=== PATIENT | male | born 1980 | race Hispanic/Latino ===

== ENCOUNTER 2018-02-22 04:04 | Emergency (ER) | payer SELFPAY ==
[2018-02-22] MEDS ORDERED: ONDANSETRON 4 MG/2 ML VIAL ONE (04:33)
[2018-02-22] MEDS ORDERED: NA CHLORIDE 0.9% 1,000 ML ONE (04:33)
[2018-02-22 04:55] LABS: Absolute Lymphocytes (CBC) 2.9 K/uL (0.7-4.9); Absolute Monocytes 0.9 K/uL (0.1-1.3); Basophils % 0.4 % (0-1.3); Eosinophils % 2.7 % (0-4.4); Hematocrit 42.4 % (39.6-49.0); Lymphocytes % 35.6 % (15.3-44.8); MCH 32.5 pg (27.0-35.0); MCV 91.4 fL (80-100); MPV 8.4 fL (7.6-11.3); Monocytes % 11.2 % (3.3-12.3); RBC Red Blood Cell Count 4.64 M/uL (4.33-5.43)
[2018-02-22 05:12] LABS: ALT/SGPT 71 U/L (12-78); AST/SGOT 32 U/L (15-37); Albumin 3.9 g/dL (3.4-5.0); Alkaline Phosphatase 101 U/L (45-117); BUN Blood Urea Nitrogen 14 mg/dL (7-18); Bicarbonate 25 mmol/L (21-32); Bilirubin Direct 0.1 mg/dL (0-0.2); Bilirubin Total 0.6 mg/dL (0.2-1.0); Glucose Level 102 mg/dL (74-106); Lipase 166 U/L (73-393); Potassium 3.5 mmol/L (3.5-5.1); Protein, Total 7.9 g/dL (6.4-8.2); Sodium Level 142 mmol/L (136-145)
--- NOTE | 2018-02-22 05:22 | EDPHYS ---
Physician Documentation [facility] Name: Kenny Jenkins Age: 37 yrs Sex: Male : 1980 Arrival Date: 02/22/2018 Time: 04:05 Bed 15 Private MD: ED Physician Nghia Ford HPI: 02/22 04:21 This 37 yrs old Male presents to ER via Ambulatory with complaints of Cough, jean Vomiting, Headache. 04:21 The patient or guardian reports cough. Onset: The symptoms/episode began/occurred 2 jean day(s) ago. Severity of symptoms: At their worst the symptoms were mild, in the emergency department the symptoms are unchanged. Modifying factors: The symptoms are alleviated by nothing, the symptoms are aggravated by nothing. Associated signs and symptoms: The patient has no apparent associated signs or symptoms. Historical: - Allergies: 04:17 No Known Allergies; tl2 - Home Meds: 04:17 None [Active]; tl2 - PMHx: 04:17 Kidney stones; tl2 - PSHx: 04:17 None; tl2 - Immunization history:: Adult Immunizations up to date. - Social history:: Smoking status: Patient/guardian denies using tobacco. - Ebola Screening: : No symptoms or risks identified at this time. ROS: 04:21 Constitutional: Negative for fever, chills, and weight loss, Eyes: Negative for injury, jean pain, redness, and discharge, ENT: Negative for injury, pain, and discharge, Neck: Negative for injury, pain, and swelling, Cardiovascular: Negative for chest pain, palpitations, and edema, Back: Negative for injury and pain, : Negative for injury, bleeding, discharge, and swelling, MS/Extremity: Negative for injury and deformity, Skin: Negative for injury, rash, and discoloration, Neuro: Negative for headache, weakness, numbness, tingling, and seizure, Psych: Negative for depression, anxiety, suicide ideation, homicidal ideation, and hallucinations, Allergy/Immunology: Negative for hives, rash, and allergies, Endocrine: Negative for neck swelling, polydipsia, polyuria, polyphagia, and marked weight changes, Hematologic/Lymphatic: Negative for swollen nodes, abnormal bleeding, and unusual bruising. 04:21 Respiratory: Positive for cough. 04:21 Abdomen/GI: Positive for nausea and vomiting, diarrhea. Exam: 04:21 Constitutional: This is a well developed, well nourished patient who is awake, alert, jean and in no acute distress. Head/Face: Normocephalic, atraumatic. Eyes: Pupils equal round and reactive to light, extra-ocular motions intact. Lids and lashes normal. Conjunctiva and sclera are non-icteric and not injected. Cornea within normal limits. Periorbital areas with no swelling, redness, or edema. ENT: Nares patent. No nasal discharge, no septal abnormalities noted. Tympanic membranes are normal and external auditory canals are clear. Oropharynx with no redness, swelling, or masses, exudates, or evidence of obstruction, uvula midline. Mucous membranes moist. Neck: Trachea midline, no thyromegaly or masses palpated, and no cervical lymphadenopathy. Supple, full range of motion without nuchal rigidity, or vertebral point tenderness. No Meningismus. Chest/axilla: Normal chest wall appearance and motion. Nontender with no deformity. No lesions are appreciated. Cardiovascular: Regular rate and rhythm with a normal S1 and S2. No gallops, murmurs, or rubs. Normal PMI, no JVD. No pulse deficits. Back: No spinal tenderness. No costovertebral tenderness. Full range of motion. Male : Normal genitalia with no discharge or lesions. Skin: Warm, dry with normal turgor. Normal color with no rashes, no lesions, and no evidence of cellulitis. MS/ Extremity: Pulses equal, no cyanosis. Neurovascular intact. Full, normal range of motion. Neuro: Awake and alert, GCS 15, oriented to person, place, time, and situation. Cranial nerves II-XII grossly intact. Motor strength 5/5 in all extremities. Sensory grossly intact. Cerebellar exam normal. Normal gait. Psych: Awake, alert, with orientation to person, place and time. Behavior, mood, and affect are within normal limits. 04:21 Respiratory: the patient does not display signs of respiratory distress, Respirations: normal, Breath sounds: decreased breath sounds. 04:32 Neck: ROM/movement: is normal, no acute changes, Meningeal signs: are not present, jean Kernig's sign is negative, Brudzinski's sign is negative. Vital Signs: 04:17 BP 147 / 97; Pulse 68; Resp 18; Temp 98.2(O); Pulse Ox 97% on R/A; Weight 111.13 kg; tl2 Height 6 ft. 0 in. (182.88 cm); Pain 8/10; 04:17 Body Mass Index 33.23 (111.13 kg, 182.88 cm) tl2 MDM: 04:11 Patient medically screened. [facility] 04:23 Data reviewed: vital signs, nurses notes, lab test result(s), EKG, radiologic studies, [facility] plain films. 02/22 04:20 Order name: Basic Metabolic Panel; Complete Time: 05: [facility] 02/22 04:20 Order name: CBC with Diff; Complete Time: 05: [facility] 02/22 04:20 Order name: Creatinine for Radiology; Complete Time: : [facility] 02/22 04:20 Order name: Hepatic Function; Complete Time: 05: [facility] 02/22 04:20 Order name: Lipase; Complete Time: 05: [facility] 02/22 04:20 Order name: Chest Single View XRAY [facility] 02/22 04:20 Order name: IV Saline Lock; Complete Time: 04:31 [facility] 02/22 04:20 Order name: Labs collected and sent; Complete Time: 04:31 [facility] Administered Medications: 04:30 Drug: NS 0.9% 1000 ml Route: IV; Rate: 1 bolus; Site: left antecubital; ea 05:15 Follow up: Response: No adverse reaction; IV Status: Completed infusion; IV Intake: ea 1000ml 04:31 Drug: Zofran 4 mg Route: IVP; Site: left antecubital; ea 05:00 Follow up: Response: No adverse reaction; Nausea is decreased ea Disposition: 02/22/18 05:21 Discharged to Home. Impression: Cough, Vomiting, Diarrhea, unspecified. - Condition is Stable. - Discharge Instructions: Food Choices to Help Relieve Diarrhea, Adult, Diarrhea, Adult, Nausea and Vomiting, Adult, Nausea and Vomiting, Adult, [id number], Diarrhea, Adult, [id number]-te-Nekt, Cough, Adult, [id number]-ag-Ltot, Cough, Adult. - Prescriptions for Bentyl 20 mg Oral Tablet - take 1 tablet by ORAL route every 6 hours As needed; 20 tablet. Zofran 4 mg Oral Tablet - take 1 tablet by ORAL route every 12 hours As needed; 20 tablet. - Medication Reconciliation Form, Thank You Letter, Antibiotic Education, Prescription Opioid Use, Work release form form. - Follow up: Private Physician; When: 2 - 3 days; Reason: Recheck today's complaints, Continuance of care, Re-evaluation by your physician. - Problem is new. - Symptoms have improved. Signatures: Dispatcher [employer] EDMS Nghia Ford MD MD cha Solis, Maria ms Kaleigh Velazquez, RN RN tl2 Kimmy Daily RN RN ea Corrections: (The following items were deleted from the chart) 05:52 05:21 02/22/2018 05:21 Discharged to Home. Impression: Cough; Vomiting; Diarrhea, ms unspecified. Condition is Stable. Discharge Instructions: Food Choices to Help Relieve Diarrhea, Adult, Diarrhea, Adult, Nausea and Vomiting, Adult, Nausea and Vomiting, Adult, Pzho-[id number], Diarrhea, Adult, Vghv-[id number], Cough, Adult, [id number]-[id number]-[id number], Cough, Adult. Prescriptions for Bentyl 20 mg Oral Tablet - take 1 tablet by ORAL route every 6 hours As needed; 20 tablet, Zofran 4 mg Oral Tablet - take 1 tablet by ORAL route every 12 hours As needed; 20 tablet. and Forms are Medication Reconciliation Form, Thank You Letter, Antibiotic Education, Prescription Opioid Use. Follow up: Private Physician; When: 2 - 3 days; Reason: Recheck today's complaints, Continuance of care, Re-evaluation by your physician. Problem is new. Symptoms have improved. jean
--- NOTE | 2018-02-22 05:22 | ER ---
Nurse's Notes [facility] Name: Kenny Jenkins Age: 37 yrs Sex: Male : 1980 Arrival Date: 02/22/2018 Time: 04:05 Bed 15 Private MD: Diagnosis: Cough;Vomiting;Diarrhea, unspecified Presentation: 02/22 04:16 Presenting complaint: Patient states: Vomiting and headache since last night. Denies tl2 fever. Reports abdominal pain and diarrhea that has since resolved. Reports cough and congestion. Transition of care: patient was not received from another setting of care. Onset of symptoms was February 21, 2018 at 22:00. Risk Assessment: Do you want to hurt yourself or someone else? Patient reports no desire to harm self or others. Initial Sepsis Screen: Does the patient meet any 2 criteria? No. Patient's initial sepsis screen is negative. Does the patient have a suspected source of infection? No. Patient's initial sepsis screen is negative. Care prior to arrival: None. 04:16 Method Of Arrival: Ambulatory tl2 04:16 Acuity: TAMI 3 tl2 Triage Assessment: 04:17 General: Appears in no apparent distress. tl2 Historical: - Allergies: 04:17 No Known Allergies; tl2 - Home Meds: 04:17 None [Active]; tl2 - PMHx: 04:17 Kidney stones; tl2 - PSHx: 04:17 None; tl2 - Immunization history:: Adult Immunizations up to date. - Social history:: Smoking status: Patient/guardian denies using tobacco. - Ebola Screening: : No symptoms or risks identified at this time. Screenin:19 Abuse screen: Denies threats or abuse. Nutritional screening: No deficits noted. tl2 Tuberculosis screening: No symptoms or risk factors identified. Fall Risk None identified. Assessment: 04:17 General: Appears uncomfortable, Behavior is calm, cooperative, appropriate for age. ea Pain: Complains of pain in right upper quadrant Pain currently is 6 out of 10 on a pain scale. Quality of pain is described as crampy, Pain began yesterday. Neuro: Level of Consciousness is awake, alert, obeys commands, Oriented to person, place, time. Cardiovascular: Heart tones S1 S2 present Patient's skin is warm and dry. Respiratory: Airway is patent Respiratory effort is even, unlabored, Respiratory pattern is regular, symmetrical, Breath sounds are clear bilaterally. GI: Abdomen is non-distended, Bowel sounds present X 4 quads. Abd is soft X 4 quads Abdomen is tender to palpation in right upper quadrant Parent/caregiver reports the patient having nausea, vomiting. Derm: Skin is pink, warm \T\ dry. Musculoskeletal: Circulation, motion, and sensation intact. 05:46 Reassessment: Patient and/or family updated on plan of care and expected duration. Pain ea level reassessed. Patient is alert, oriented x 3, equal unlabored respirations, skin warm/dry/pink. Discharge instructions given to patient, verbalized the understanding of instruction. Vital Signs: 04:17 BP 147 / 97; Pulse 68; Resp 18; Temp 98.2(O); Pulse Ox 97% on R/A; Weight 111.13 kg; tl2 Height 6 ft. 0 in. (182.88 cm); Pain 8/10; 04:17 Body Mass Index 33.23 (111.13 kg, 182.88 cm) tl2 ED Course: 04:05 Patient arrived in ED. ag3 04:11 Nghia Ford MD is Attending Physician. jean 04:17 Triage completed. tl2 04:17 Kimmy Daily, RN is Primary Nurse. ea 04:17 Arm band placed on right wrist. tl2 04:19 Patient has correct armband on for positive identification. Bed in low position. Call tl2 light in reach. Side rails up X 1. 04:30 Inserted saline lock: 20 gauge in right antecubital area, using aseptic technique. ea Blood collected. 05:05 X-ray completed. Portable x-ray completed in exam room. Patient tolerated procedure ag1 well. 05:05 Chest Single View XRAY In Process Unspecified. EDMS Administered Medications: 04:30 Drug: NS 0.9% 1000 ml Route: IV; Rate: 1 bolus; Site: left antecubital; ea 05:15 Follow up: Response: No adverse reaction; IV Status: Completed infusion; IV Intake: ea 1000ml 04:31 Drug: Zofran 4 mg Route: IVP; Site: left antecubital; ea 05:00 Follow up: Response: No adverse reaction; Nausea is decreased ea Intake: 05:15 IV: 1000ml; Total: 1000ml. ea Outcome: 05:21 Discharge ordered by MD. pena 05:47 Condition: improved alfonzo 05:47 Discharge instructions given to patient, Instructed on discharge instructions, follow up and referral plans. medication usage, Demonstrated understanding of instructions, follow-up care, medications, Prescriptions given X 2. 05:52 Patient left the ED. ms Signatures: Dispatcher [employer] EDNJ Nghia Ford MD MD cha Solis, Maria ms Gallaway, Genoveva ag1 Kaleigh Velazquez RN RN sean2 Kimmy Daily RN JOSSELYN Guerrero, Merissa ag3
--- NOTE | 2018-02-22 11:14 | RAD REPORT ---
EXAM DESCRIPTION: RAD - Chest Single View - 02/22/2018 5:07 am CLINICAL HISTORY: ABDOMINAL DISTENTION Chest pain. COMPARISON: No comparisons FINDINGS: Portable technique limits examination quality. The lungs are grossly clear. The heart is normal in size. No displaced fractures. IMPRESSION: No acute intrathoracic process suspected.
== END 2018-02-22 05:52 | disposition home or self-care (01) ==
LOC: ER 04:04
DX: R11.10 Vomiting, unspecified (principal); R19.7 Diarrhea, unspecified
CPT/HCPCS: 36415; 71045; 80048; 80076; 83690; 85025; 96361; 96374; 99284; J2405; J7030

== ENCOUNTER 2018-05-27 11:20 | Emergency (ER) | payer SELFPAY ==
[2018-05-27] MEDS ORDERED: ONDANSETRON 4 MG (ODT) TAB ONE (12:38)
--- NOTE | 2018-05-27 12:47 | ER ---
Nurse's Notes [facility] Name: Kenny Jenkins Age: 37 yrs Sex: Male : 1980 Arrival Date: 05/27/2018 Time: 11:24 Bed 13 Private MD: None, None Diagnosis: Otitis media, unspecified, left ear Presentation: 05/27 11:37 Presenting complaint: Patient states: Cough, congestion, N/V/D for 2 days. Transition aj of care: patient was not received from another setting of care. Onset of symptoms was May 26, 2018. Risk Assessment: Do you want to hurt yourself or someone else? Patient reports no desire to harm self or others. Initial Sepsis Screen: Does the patient meet any 2 criteria? No. Patient's initial sepsis screen is negative. Does the patient have a suspected source of infection? No. Patient's initial sepsis screen is negative. Care prior to arrival: None. 11:37 Method Of Arrival: Ambulatory aj 11:37 Acuity: TAIM 3 aj Triage Assessment: 11:38 General: Appears in no apparent distress. comfortable, Behavior is calm, cooperative, aj appropriate for age. Pain: Denies pain. EENT: Reports nasal congestion nasal discharge. Neuro: Level of Consciousness is awake, alert, obeys commands, Oriented to person, place, time, situation, Appropriate for age. Respiratory: Reports cough that is pain with cough Airway is patent Respiratory effort is even, unlabored, Respiratory pattern is regular, symmetrical. Derm: Skin is intact, is healthy with good turgor, Skin is pink, warm \T\ dry. normal. Historical: - Allergies: 11:38 No Known Allergies; aj - Home Meds: 11:38 None [Active]; aj - PMHx: 11:38 Kidney stones; aj - PSHx: 11:38 None; aj - Immunization history:: Adult Immunizations up to date. - Social history:: Smoking status: Patient/guardian denies using tobacco. - Ebola Screening: : Patient negative for fever greater than or equal to 101.5 degrees Fahrenheit, and additional compatible Ebola Virus Disease symptoms Patient denies exposure to infectious person Patient denies travel to an Ebola-affected area in the 21 days before illness onset No symptoms or risks identified at this time. Screenin:00 Abuse screen: Denies threats or abuse. Denies injuries from another. Nutritional hb screening: No deficits noted. Tuberculosis screening: No symptoms or risk factors identified. Fall Risk None identified. Assessment: 12:00 General: Appears in no apparent distress. ill, Behavior is calm, cooperative. Pain: hb Pain currently is 2 out of 10 on a pain scale. Neuro: Level of Consciousness is awake, alert, obeys commands, Oriented to person, place, time, situation. Cardiovascular: Capillary refill < 3 seconds Patient's skin is warm and dry. Respiratory: Airway is patent Respiratory effort is even, unlabored, Respiratory pattern is regular, symmetrical, Breath sounds are clear bilaterally. GI: No signs and/or symptoms were reported involving the gastrointestinal system. : No signs and/or symptoms were reported regarding the genitourinary system. EENT: No signs and/or symptoms were reported regarding the EENT system. Derm: No signs and/or symptoms reported regarding the dermatologic system. Skin is intact, is healthy with good turgor. Musculoskeletal: No signs and/or symptoms reported regarding the musculoskeletal system. 13:00 Reassessment: Patient appears in no apparent distress at this time. No changes from previously documented assessment. Patient and/or family updated on plan of care and expected duration. Pain level reassessed. Patient is alert, oriented x 3, equal unlabored respirations, skin warm/dry/pink. Vital Signs: 11:38 BP 144 / 86; Pulse 74; Resp 20; Temp 97.5; Pulse Ox 98% on R/A; Weight 106.59 kg; aj Height 6 ft. 0 in. (182.88 cm); 13:00 BP 138 / 84; Pulse 73; Resp 16; Pulse Ox 100% on R/A; hb 11:38 Body Mass Index 31.87 (106.59 kg, 182.88 cm) aj ED Course: 11:24 Patient arrived in ED. sb2 11:24 None, None is Private Physician. sb2 11:35 Kim [facility] FNP-C [facility]. kb 11:35 Nghia Ford MD is Attending Physician. kb 11:38 Triage completed. aj 11:38 Arm band placed on left wrist. Patient placed in waiting room, Patient notified of wait aj time. 12:00 Patient has correct armband on for positive identification. hb 12:35 Sayra Erickson, RN is Primary Nurse. hb 13:00 No provider procedures requiring assistance completed. Patient did not have IV access hb during this emergency room visit. Administered Medications: 12:35 Drug: Zofran 4 mg Route: PO; hb 12:56 Follow up: Response: No adverse reaction hb Outcome: 12:47 Discharge ordered by . michael 13:00 Discharged to home ambulatory. hb 13:00 Condition: stable 13:00 Discharge instructions given to patient, Instructed on discharge instructions, follow up and referral plans. medication usage, Demonstrated understanding of instructions, follow-up care, medications, Prescriptions given X 2. 13:14 Patient left the ED. hb Signatures: Kim Zhou, RURAL CARRIER-C RURAL CARRIER-Kecia Schaffer RN RN Sayra Eli RN RN Ronit Luciano sb2
--- NOTE | 2018-05-27 12:47 | EDPHYS ---
Physician Documentation [facility] Name: Kenny Jenkins Age: 37 yrs Sex: Male : 1980 Arrival Date: 05/27/2018 Time: 11:24 Bed 13 Private MD: None, None ED Physician Nghia Ford HPI: 05/27 12:44 This 37 yrs old Male presents to ER via Ambulatory with complaints of Flu kb Symptoms. 12:46 The patient or guardian reports cough, that is intermittent, described as mild, with no kb sputum, flu symptoms, low-grade fever, myalgias. Onset: The symptoms/episode began/occurred yesterday. Severity of symptoms: At their worst the symptoms were moderate, in the emergency department the symptoms are unchanged. Modifying factors: The symptoms are alleviated by nothing, the symptoms are aggravated by nothing. Associated signs and symptoms: Pertinent positives: earache, fever, nausea, rhinorrhea, vomiting, Pertinent negatives: chest pain, diarrhea, sore throat. The patient has not experienced similar symptoms in the past. The patient has not recently seen a physician. Historical: - Allergies: 11:38 No Known Allergies; aj - Home Meds: 11:38 None [Active]; aj - PMHx: 11:38 Kidney stones; aj - PSHx: 11:38 None; aj - Immunization history:: Adult Immunizations up to date. - Social history:: Smoking status: Patient/guardian denies using tobacco. - Ebola Screening: : Patient negative for fever greater than or equal to 101.5 degrees Fahrenheit, and additional compatible Ebola Virus Disease symptoms Patient denies exposure to infectious person Patient denies travel to an Ebola-affected area in the 21 days before illness onset No symptoms or risks identified at this time. ROS: 12:44 Cardiovascular: Negative for chest pain, palpitations, and edema, Back: Negative for kb injury and pain, MS/Extremity: Negative for injury and deformity, Skin: Negative for injury, rash, and discoloration, Neuro: Negative for headache, weakness, numbness, tingling, and seizure. 12:44 Constitutional: Positive for chills, fever, malaise, Negative for body aches, fatigue, poor PO intake, weight loss. 12:44 ENT: Positive for ear pain, rhinorrhea, sinus congestion. 12:44 Respiratory: Positive for cough, Negative for dyspnea on exertion, hemoptysis, orthopnea, pleurisy, shortness of breath, sputum production, wheezing. 12:44 Abdomen/GI: Positive for nausea and vomiting. Exam: 12:45 Constitutional: This is a well developed, well nourished patient who is awake, alert, kb and in no acute distress. Head/Face: Normocephalic, atraumatic. Chest/axilla: Normal chest wall appearance and motion. Nontender with no deformity. No lesions are appreciated. Cardiovascular: Regular rate and rhythm with a normal S1 and S2. No gallops, murmurs, or rubs. Normal PMI, no JVD. No pulse deficits. Respiratory: Lungs have equal breath sounds bilaterally, clear to auscultation and percussion. No rales, rhonchi or wheezes noted. No increased work of breathing, no retractions or nasal flaring. Abdomen/GI: Soft, non-tender, with normal bowel sounds. No distension or tympany. No guarding or rebound. No evidence of tenderness throughout. Skin: Warm, dry with normal turgor. Normal color with no rashes, no lesions, and no evidence of cellulitis. MS/ Extremity: Pulses equal, no cyanosis. Neurovascular intact. Full, normal range of motion. Neuro: Awake and alert, GCS 15, oriented to person, place, time, and situation. Cranial nerves II-XII grossly intact. Motor strength 5/5 in all extremities. Sensory grossly intact. Cerebellar exam normal. Normal gait. 12:45 ENT: External ear(s): are unremarkable, Ear canal(s): are normal, TM's: bulging, on the left, erythema, that is moderate, on the left, Nose: is normal, Mouth: is normal, Posterior pharynx: is normal. Vital Signs: 11:38 BP 144 / 86; Pulse 74; Resp 20; Temp 97.5; Pulse Ox 98% on R/A; Weight 106.59 kg; aj Height 6 ft. 0 in. (182.88 cm); 13:00 BP 138 / 84; Pulse 73; Resp 16; Pulse Ox 100% on R/A; hb 11:38 Body Mass Index 31.87 (106.59 kg, 182.88 cm) aj MDM: 11:48 Patient medically screened. [facility] 12:45 Data reviewed: vital signs, nurses notes. Data interpreted: Pulse oximetry: on room air kb is 98 %. Interpretation: normal. Counseling: I had a detailed discussion with the patient and/or guardian regarding: the historical points, exam findings, and any diagnostic results supporting the discharge/admit diagnosis, lab results, the need for outpatient follow up, a family practitioner, to return to the emergency department if symptoms worsen or persist or if there are any questions or concerns that arise at home. 05/27 11:39 Order name: Flu; Complete Time: 12:14 05/27 11:39 Order name: Strep; Complete Time: 12:11 05/27 12:09 Order name: Throat Culture [facility] 05/27 12:20 Order name: PO challenge; Complete Time: 12:48 kb Administered Medications: 12:35 Drug: Zofran 4 mg Route: PO; hb 12:56 Follow up: Response: No adverse reaction hb Disposition: 15:05 Co-signature as Attending Physician, Nghia Ford MD I agree with the assessment and [facility] plan of care. Disposition: 05/27/18 12:47 Discharged to Home. Impression: Otitis media, unspecified, left ear. - Condition is Stable. - Discharge Instructions: Otitis Media, Adult, [id number]. - Prescriptions for Augmentin 875- 125 mg Oral Tablet - take 1 tablet by ORAL route every 12 hours for 7 days; 14 tablet. Zofran 4 mg Oral Tablet - take 1 tablet by ORAL route every 6 hours As needed; 20 tablet. - Medication Reconciliation Form, Thank You Letter, Antibiotic Education, Prescription Opioid Use, Work release form form. - Follow up: Emergency Department; When: As needed; Reason: Worsening of condition. Follow up: Private Physician; When: 2 - 3 days; Reason: Recheck today's complaints, Continuance of care, Re-evaluation by your physician. Signatures: Dispatcher [employer] Kim Bennett, CELSO BRURP-Kecia Schaffer, Nghia Enrique RN, MD MD cha Baxter, Heather, RN RN hb Corrections: (The following items were deleted from the chart) 13:14 12:47 05/27/2018 12:47 Discharged to Home. Impression: Otitis media, unspecified, left hb ear. Condition is Stable. Forms are Medication Reconciliation Form, Thank You Letter, Antibiotic Education, Prescription Opioid Use. Follow up: Emergency Department; When: As needed; Reason: Worsening of condition. Follow up: Private Physician; When: 2 - 3 days; Reason: Recheck today's complaints, Continuance of care, Re-evaluation by your physician. kb
== END 2018-05-27 13:14 | disposition home or self-care (01) ==
LOC: ER 11:20
DX: H66.92 Otitis media, unspecified, left ear (principal)
CPT/HCPCS: 87070; 87081; 87804; 99283